=== PATIENT | female | born 1995 | race Caucasian/White ===

== ENCOUNTER 2017-07-04 14:58 | Emergency (ER) | payer SELFPAY ==
[~2017-07-04 14:58] MED LIST: NAPR550 PO
[2017-07-04 15:02] VITALS: BP 122/78; PULSE 102; RESP 18; TEMP 98.7; O2SAT 99
[2017-07-04] MEDS ORDERED: BIRTH CONTROL PILLS (15:05)
[2017-07-04] MEDS ORDERED: PENI500T PO (15:13)
--- NOTE | 2017-07-04 15:13 | PD ---
HPI Chief Complaint: ENT Complaint Time Seen by Provider: 15:08 Travel History International Travel<30 days: No Contact w/Intl Traveler<30days: No Traveled to known affect area: No History of Present Illness HPI 21-year-old female with chief complaint sore throat 5 days. Patient reports fever and chills. She reports pain with swallowing although she has no difficulty eating or drinking. She denies headache, nasal congestion, cough, abdominal pain. No aggravating or alleviating factors. Symptoms severity mild PFSH Past Medical History Medical History: Denies Significant Hx Heart Rhythm Problems: Yes (TACHY WITH CAFFEINE) Diminished Hearing: No Immunizations Current: Yes Influenza Vaccination: No ?: Not Past Surgical History Surgical History: No Previous Surgery Social History Alcohol Use: Yes ("SPECIAL OCCASIONS") Tobacco Use: No Substance Use: No Allergies-Medications (Allergen,Severity, Reaction): Coded Allergies: No Known Allergies (Verified , 07/04/17) Reported Meds & Prescriptions Reported Meds & Active Scripts Active Penicillin V Potassium 500 Mg Tab 500 Mg PO Q12HR Reported [ Control Pills] Review of Systems Except as stated in HPI: all other systems reviewed are Neg General / Constitutional: No: Fever Eyes: No: Visual changes HENT: Positive: Sore Throat, No: Headaches Cardiovascular: No: Chest Pain or Discomfort Respiratory: No: Shortness of Breath Gastrointestinal: No: Abdominal Pain Physical Exam Narrative GENERAL: Well-nourished, well-developed patient. SKIN: Focused skin assessment warm/dry. HEAD: Normocephalic. EYES: No scleral icterus. No injection or drainage. THROAT: Posterior pharyngeal erythema with tonsillar swelling and exudate. Uvula is midline. No pointing abscess. NECK: Supple, trachea midline. No JVD or lymphadenopathy. CARDIOVASCULAR: Regular rate and rhythm without murmurs, gallops, or rubs. RESPIRATORY: Breath sounds equal bilaterally. No accessory muscle use. GASTROINTESTINAL: Abdomen soft, non-tender, nondistended. MUSCULOSKELETAL: No cyanosis, or edema. BACK: Nontender without obvious deformity. No CVA tenderness. Data Data Last Documented VS Vital Signs Date Time Temp Pulse Resp B/P Pulse Ox O2 Delivery O2 Flow Rate FiO2 07/04/17 15:02 98.7 102 18 122/78 99 MDM Medical Decision Making Medical Screen Exam Complete: Yes Emergency Medical Condition: Yes Differential Diagnosis Strep pharyngitis, viral pharyngitis, URI Narrative Course 21-year-old female with chief complaint sore throat 5 days. Patient's physical exam is consistent with strep pharyngitis. Patient be treated with penicillin and instructed to stay hydrated and use [id number] Motrin as needed for pain. Patient verbalizes understanding and agrees to plan. Diagnosis Primary Impression: Tonsillitis Referrals: Primary Care Physician Departure Forms: School Release, Tests/Procedures, Work Release Enter return to work date: Jul 05, 2017 Additional Instructions: Take the antibiotics as prescribed. Take [id number] Motrin [id number] milligrams every 6-8 hours as needed for pain. Stay well hydrated by drinking plenty of fluids. Return to the emergency department if he developed new or worsening symptoms Scripts Penicillin V Potassium 500 Mg [id number] Mg PO Q12HR #20 TAB Prov:Abby Blevins 07/04/17 Disposition: 01 DISCHARGE HOME Condition: Stable Abby Blevins Jul 04, 2017 15:13
== END 2017-07-04 15:25 | disposition home or self-care (01) ==
LOC: PHEFT 14:58
DX: J03.90 Acute tonsillitis, unspecified (principal); R50.9 Fever, unspecified
CPT/HCPCS: 99283

== ENCOUNTER 2017-12-05 19:45 | Emergency (ER) | payer SELFPAY ==
[~2017-12-05] VITALS: Ht 157.5 cm; Wt 54.5 kg
[~2017-12-05 19:45] MED LIST changes: +BIRTH CONTROL PILLS; -NAPR550 PO; +PENI500T PO
[2017-12-05 19:52] VITALS: BP 129/88; PULSE 116; RESP 18; TEMP 97.7; O2SAT 99
[2017-12-05 20:10] LABS: BILIRUBIN, URINE NEG (NEG); BLOOD, URINE LARGE (NEG); GLUCOSE,URINE NEG (NEG); KETONE, URINE TRACE mg/dL (NEG); NITRITE,URINE NEG (NEG); PH, URINE 6.5 (5.0-8.5); URINE LEUKOCYTE ESTERASE SMALL (NEG)
--- NOTE | 2017-12-05 20:11 | PD ---
HPI Chief Complaint: Complaint Time Seen by Provider: 19:57 Travel History International Travel<30 days: No Contact w/Intl Traveler<30days: No History of Present Illness HPI The patient is a 22-year-old female who presents to the emergency department for urinary symptoms of one days duration. The patient complains of dysuria, frequency, urgency, and hematuria. She complains of mild left flank pain. She has a history of UTIs with similar symptoms. She notes her pain is minimal. She denies any nausea, vomiting, or vaginal discharge. The patient's last menstrual cycle was 3 months ago, she is currently on control pill that she takes every 3 months. She also complains of enlarged tonsils, pain with swallowing, and anterior cervical lymphadenopathy. She denies any actual fever, chills, or sweats. Symptoms are mild to moderate, there are no current alleviating or exacerbating factors. PFSH Past Medical History Heart Rhythm Problems: Yes (TACHY WITH CAFFEINE) Diminished Hearing: No Immunizations Current: Yes ?: Unknown LMP: "3 MONTHS AGO" ON BCP Social History Alcohol Use: Yes ("SPECIAL OCCASIONS") Tobacco Use: No Substance Use: No Allergies-Medications (Allergen,Severity, Reaction): Coded Allergies: No Known Allergies (Verified Adverse Reaction, Unknown, 12/05/17) Reported Meds & Prescriptions Reported Meds & Active Scripts Active Reported Cefprozil 250 Mg Tab 250 Mg PO BID Seasonique (Levonorgestrel-Ethinyl Estradiol) 0.15-0.03-0.01 Mg Tab 1 Tab PO DAILY [ Control Pills] Review of Systems Except as stated in HPI: all other systems reviewed are Neg General / Constitutional: No: Fever, Chills HENT: Positive: Sore Throat, Neck Pain Gastrointestinal: No: Nausea, Vomiting, Abdominal Pain Genitourinary: Positive: Urgency, Frequency, Dysuria, Hematuria, Flank Pain, No : Discharge, Vaginal Bleeding Physical Exam Narrative GENERAL: Awake, alert, pleasant 22-year-old female who appears her stated age and is in no acute respiratory distress. SKIN: Focused skin assessment warm/dry. HEAD: Atraumatic. Normocephalic. EYES: Pupils equal and round. No scleral icterus. No injection or drainage. ENT: No nasal bleeding or discharge. Enlarged tonsils bilaterally with mild erythema but no exudate. NECK: Trachea midline. No JVD. Bilateral anterior cervical lymphadenopathy. CARDIOVASCULAR: Regular rate and rhythm. No murmur appreciated. Heart rate in the 90s. RESPIRATORY: No accessory muscle use. Clear to auscultation. Breath sounds equal bilaterally. GASTROINTESTINAL: Abdomen soft, non-tender, nondistended. No suprapubic tenderness. Back: No CVA tenderness. MUSCULOSKELETAL: No obvious deformities. No clubbing. No cyanosis. No edema. NEUROLOGICAL: Awake and alert. No obvious cranial nerve deficits. Motor grossly within normal limits. Normal speech. PSYCHIATRIC: Appropriate mood and affect; insight and judgment normal. Data Data Last Documented VS Vital Signs Date Time Temp Pulse Resp B/P (MAP) Pulse Ox O2 Delivery O2 Flow Rate FiO2 12/05/17 20:22 20 12/05/17 19:52 97.7 116 129/88 (102) 99 Orders Orders Group A Rapid Strep Screen (12/05/17 20:00) Urinalysis - C+S If Indicated (12/05/17 20:00) Ed Urine Pregnancytest Poc (12/05/17 20:00) Strep Culture (Group A) (12/05/17 20:03) Urine Culture (12/05/17 20:03) Labs Laboratory Tests Test 12/05/17 20:03 Urine Color YELLOW Urine Turbidity CLOUDY Urine pH 6.5 Urine Specific [place] 1.025 Urine Protein 100 mg/dL Urine Glucose (UA) NEG mg/dL Urine Ketones TRACE mg/dL Urine Occult Blood LARGE Urine Nitrite NEG Urine Bilirubin NEG Urine Leukocyte Esterase SMALL Urine RBC 25-49 /hpf Urine WBC 100-200 /hpf Urine Squamous Epithelial Cells 0-5 /hpf Urine Bacteria MOD /hpf Microscopic Urinalysis Comment CULTURE INDICATED MDM Medical Decision Making Medical Screen Exam Complete: Yes Emergency Medical Condition: Yes Medical Record Reviewed: Yes Differential Diagnosis Differential diagnosis includes UTI, nephrolithiasis, pyelonephritis, vaginitis , cervicitis, PID, pharyngitis, strep pharyngitis, mononucleosis, URI. Narrative Course A strep screen was sent to lab. UA was sent to lab. Bedside UA test was obtained, was negative. Strep screen was negative. UA was positive for WBCs and a few RBCs consistent with cystitis, possibly hemorrhagic cystitis. Diagnosis Primary Impression: UTI (urinary tract infection) Qualified Codes: N30.01 - Acute cystitis with hematuria Patient Instructions: General Instructions Additional Instructions: Medications as directed. Follow-up with her primary physician. Return if symptoms worsen or progress. Med/Other Pt SpecificInfo: Prescription(s) given Scripts Phenazopyridine (Pyridium) 100 Mg Tab 200 MG PO Q8H Y for DYSURIA for 2 Days, #12 TAB 0 Refills Prov: Stanislaw Bennett MD 12/05/17 Sulfamethoxazole-Trimethoprim (Bactrim DS) 800-160 Mg Tab 1 TAB PO BID for Infection, #14 TAB 0 Refills Prov: Stanislaw Bennett MD 12/05/17 Disposition: 01 DISCHARGE HOME Condition: Stable Stanislaw Bennett MD Dec 05, 2017 20:11
[2017-12-05 20:21] LABS: URINE COLOR YELLOW (YELLW/STRAW)
[2017-12-05 20:22] LABS: BACTERIA, URINE MOD /hpf; SQUAMOUS EPITHELIAL CELL URINE 0-5 /hpf (0-5); WBC, URINE 100-200 /hpf (0-5)
[2017-12-05] MEDS ORDERED: CEFP250T PO (20:34)
[2017-12-05] MEDS ORDERED: SEASTAB2 PO (20:34)
[2017-12-05] MEDS ORDERED: BACT800T5 PO (20:35)
[2017-12-05] MEDS ORDERED: PHEN0.4T PO (20:35)
[2017-12-05 20:58] VITALS: BP 131/83
== END 2017-12-05 21:01 | disposition home or self-care (01) ==
LOC: PHED 19:45
DX: N39.0 Urinary tract infection, site not specified (principal); J02.9 Acute pharyngitis, unspecified; R59.1 Generalized enlarged lymph nodes; Z79.899 Other long term (current) drug therapy
CPT/HCPCS: 81001; 84703; 87081; 87086; 87880; 99283